=== PATIENT | female | born 1970 | race Caucasian/White ===

== ENCOUNTER 2024-04-03 14:04 | Outpatient (AMB) | payer MEDICAID, SELFPAY ==
--- NOTE | 2024-04-03 14:55 | ORTHONT_ITS ---
Vital signs 04/03/24 14:56 Height 1.6 m Height Method Stated Weight 122.045 kg Weight Measurement Method Standing Scale BMI 47.7 BP 135/85 H Blood Pressure Source Automatic Cuff Blood Pressure Location Right Upper Arm Position Sitting Respiration 18 Pulse 98 Pulse Source Monitor Temp 97.8 F Temp Source Temporal Artery Scan Pulse Oximetry (%) 98 Oxygen Delivery Method Room Air Med/Allergies Allergies & Medications Allergies No Known Allergies Allergy (Verified 04/03/24 14:56) Medication Reconciliation pseudoephedrine HCl 60 mg tablet 60 mg PO Q6H PRN 04/03/24 [History Confirmed 04/03/24] Subjective Visit Visit for: follow up visit Immunization / Flu Flu Vaccine in the Last 12 Months: No Flu Vaccine Exclusion Criteria: No Exclusion Criteria History of Present Illness Chief complaint: RIGHT KNEE Kalani is a pleasant 53-year-old female who presents today for bilateral knee pain worse on the right. She tried anti-inflammatories in the past. She is not any injections. She reports the pain is starting affect her quality life. She has been trying to lose weight and has a BMI of 48. Personal History Occupation: [employer] Hobbies: WALKS/BICYCLE Red flag PMH: none Pain Pain level (0-10): 3 Pain duration: COMES AND GOES Pain location: inside (medial), outside (lateral), anterior and posterior Pain quality: sharp, dull, aching and shocking Pain timing: increases with activity Associated signs & symptoms: weakness Ambulatory data Ambulatory device: cane Treatments Improvement with previous injections: No Improvement with PT: No Improvement with NSAIDS: n/a Review of Systems Review of Systems: All systems negative unless otherwise noted in HPI. Exam Exam Patient is in no acute distress and is cooperative with the examination today. Breathing is nonlabored. In no respiratory distress. Bilateral extremities were evaluated and demonstrates sensation intact to light touch. Palpable pedal pulses are present. No significant edema is present. Bilateral hips were examined. The patient has no pain with log roll of the hips. Internal rotation to 30 degrees and external rotation to 30 degrees is painless. Negative FADIR. The left knee was examined. The left knee is in [varus] alignment. Range of motion from [0-115] degrees. Knee is stable to varus and valgus as well as AP translation with <5mm. Patient has a [negative] McMurrays. There is [no] pain with patellofemoral compression and [no] crepitus noted. The knee is [tender] to palpation [medially]. The right knee was also examined. The right knee is in [varus] alignment. Range of motion from [0-120] degrees. Knee is stable to varus and valgus as well as AP translation with <5mm. Patient has a [negative] McMurrays. There is [no] pain with patellofemoral compression and [no] crepitus noted. The knee is [tender] to palpation [medially]. I have an x-ray report this is of severe arthritis bilaterally. I do nothing and visualized today Assessment and Plan Problem List (1) Arthritis of both knees: Status: Acute Plan: Patient is a pleasant 53-year-old female with bilateral knee pain and bilateral knee arthritis. She is morbidly obese we have discussed weight loss in great detail. We will get standing x-rays and likely do a cortisone injection at the next visit. We discussed nonoperative treatment. Office Procedures GNS Level of Care Nursing/Assessment Patient Status: Established Patient Nursing Assessment/Reassesment: Medication Reconciliation, Update PMH in EMR and Vital Signs Coordination of Care: Complex Care and Chronic Disease 1-5, Education Complex Pt/Fam, Consent,records obtained, informed consent, Results/Orders obtained and Staff clarify orders Established Patient Charge Established Patient Point Assignment: 95 Established Patient Point Charge: EP Level 3 (80-115) Past Medical History Past Medical History Have you ever been diagnosed with any of the following: Cardiology Problems Heart Murmur: Yes Congestive Heart Failure: No Edema: Yes Respiratory Problems Chronic Obstructive Pulmonary Disease (COPD): No Asthma: No Genital/Urinary Problems Renal Disease: No Endocrine Problems Diabetes Mellitus Type 1: No Diabetes Mellitus Type 2: Yes Blood Problems Sickle Cell Disease: No Psychologic Problems Anxiety: Yes
[2024-04-03 14:56] VITALS: BP 135/85; PULSE 98; RESP 18; TEMP 36.6; O2SAT 98; BMI 47.7
== END 2024-04-03 15:14 | disposition home or self-care (01) ==
LOC: HODSRG 14:04
PROVIDERS: Supervising Provider Orthopaedic Surgery Adult Reconstructive Orthopaedic Surgery; Visit Provider Orthopaedic Surgery Adult Reconstructive Orthopaedic Surgery
DX: M17.0 Bilateral primary osteoarthritis of knee (principal); M25.562 Pain in left knee; M25.561 Pain in right knee; E66.01 Morbid (severe) obesity due to excess calories; Z68.42 Body mass index [BMI] 45.0-49.9, adult; E11.9 Type 2 diabetes mellitus without complications
CPT/HCPCS: 99213; G0463

== ENCOUNTER 2024-04-30 08:06 | Outpatient (AMB) | payer MEDICAID, SELFPAY ==
[2024-04-30 08:12] VITALS: BP 123/80; PULSE 85; RESP 18; TEMP 36.4; O2SAT 97; BMI 47.7
--- NOTE | 2024-04-30 08:12 | ORTHONT_ITS ---
Vital signs 04/30/24 08:12 Height 1.6 m Height Method Stated Weight 122.13 kg Weight Measurement Method Standing Scale BMI 47.7 BP 123/80 Blood Pressure Source Automatic Cuff Blood Pressure Location Right Upper Arm Position Sitting Respiration 18 Pulse 85 Pulse Source Monitor Temp 97.6 F Temp Source Temporal Artery Scan Pulse Oximetry (%) 97 Oxygen Delivery Method Room Air Med/Allergies Allergies & Medications Allergies No Known Allergies Allergy (Verified 04/30/24 08:14) Medication Reconciliation pseudoephedrine HCl 60 mg tablet 60 mg PO Q6H PRN 04/03/24 [History Confirmed 04/30/24] Subjective Visit Visit for: follow up visit, knee (BILATERAL) and x-rays (RESULTS) Immunization / Flu Flu Vaccine in the Last 12 Months: Yes Flu Vaccine Exclusion Criteria: Already Received History of Present Illness Chief complaint: F/U XRAYS Kalani is a pleasant 53-year-old female who presents today for bilateral knee pain worse on the right. She tried anti-inflammatories in the past. She is not any injections. She reports the pain is starting affect her quality life. She has been trying to lose weight and has a BMI of 47. Personal History Occupation: [employer] Hobbies: WALKS/BICYCLE Red flag PMH: none Pain Pain level (0-10): 7 Pain duration: CONSTANT Pain location: inside (medial) Pain quality: aching Pain timing: night, increases with activity and stairs Associated signs & symptoms: stiffness Ambulatory data Ambulatory device: none Treatments Improvement with previous injections: No Improvement with PT: No Improvement with NSAIDS: no Review of Systems Review of Systems: All systems negative unless otherwise noted in HPI. Exam Exam Patient is in no acute distress and is cooperative with the examination today. Breathing is nonlabored. In no respiratory distress. Bilateral extremities were evaluated and demonstrates sensation intact to light touch. Palpable pedal pulses are present. No significant edema is present. Bilateral hips were examined. The patient has no pain with log roll of the hips. Internal rotation to 30 degrees and external rotation to 30 degrees is painless. Negative FADIR. The left knee was examined. The left knee is in [varus] alignment. Range of motion from [0-115] degrees. Knee is stable to varus and valgus as well as AP translation with <5mm. Patient has a [negative] McMurrays. There is [no] pain with patellofemoral compression and [no] crepitus noted. The knee is [tender] to palpation [medially]. The right knee was also examined. The right knee is in [varus] alignment. Range of motion from [0-120] degrees. Knee is stable to varus and valgus as well as AP translation with <5mm. Patient has a [negative] McMurrays. There is [no] pain with patellofemoral compression and [no] crepitus noted. The knee is [tender] to palpation [medially]. I have an x-ray report this is of severe arthritis bilaterally. She has significant arthrtis bilaterally Assessment and Plan Problem List (1) Arthritis of both knees: Status: Acute Plan: Patient is a pleasant 53-year-old female with bilateral knee pain and bilateral knee arthritis. She is morbidly obese we have discussed weight loss in great detail. We discussed weight loss and we will do bilateral knee injections today Recommend knee cortisone injections as patient would like to proceed with conservative treatment at this time. The risks and benefits of the procedure were reviewed with the patient and patient gave verbal consent to continue with the procedure. Procedure: performed by Dr. Goel Using sterile technique the Bilateral knees were thoroughly prepped with alcohol, and approximately 1 cc of Kenalog 40 mg/mL and 4 cc of 1% lidocaine was injected into each knee without resistance into the medial tibial femoral joint space. The patient tolerated the procedure. Office Procedures GNS Level of Care Nursing/Assessment Patient Status: Established Patient Nursing Assessment/Reassesment: Medication Reconciliation, Update PMH in EMR and Vital Signs Coordination of Care: Complex Care and Chronic Disease 1-5, Education Complex Pt/Fam, Consent,records obtained, informed consent, 1 Ins Authorization, Results/Orders obtained and Staff clarify orders Established Patient Charge Established Patient Point Assignment: 110 Established Patient Point Charge: EP Level 3 (80-115) Surgical Proc/IM SQ injection Major Surgical Procedure: Yes (BILATERAL KNEE INJECTION) Medication Given Medication Given Medication Given: Yes Documented Dose Given: 8 Route: Infiitration Medication Given Medication Given Medication Given: Yes Documented Dose Given: 2 Route: Infiitration Office Meds Xylocaine 10 mg/mL (1 %) injection solution Performing Provider: Sonny Goel MD Performing Location: [facility] Administered by: Sonny Goel MD on 04/30/24 08:43 Dose Route Admin Location Dispensed Lot Number Expiration Date [facility] Name Plate Stamper 40 mL Infiltration 40 mL [id number] 01/06/27 61394-704-33 [employer] triamcinolone acetonide 40 mg/mL suspension for injection Performing Provider: Sonny Goel MD Performing Location: [facility] Administered by: Sonny Goel MD on 04/30/24 08:43 Dose Route Admin Location Dispensed Lot Number Expiration Date [facility] Name Plate Stamper 80 mg Infiltration 2 mL [id number] 01/06/26 [address]-2 [employer] Past Medical History Past Medical History Have you ever been diagnosed with any of the following: Cardiology Problems Heart Murmur: Yes Congestive Heart Failure: No Edema: Yes Respiratory Problems Chronic Obstructive Pulmonary Disease (COPD): No Asthma: No Smoking: No Smoking Exposure: No Genital/Urinary Problems Renal Disease: No Endocrine Problems Diabetes Mellitus Type 1: No Diabetes Mellitus Type 2: Yes Blood Problems Sickle Cell Disease: No Psychologic Problems Anxiety: Yes
== END 2024-04-30 08:51 | disposition home or self-care (01) ==
LOC: HODSRG 08:06
PROVIDERS: PCP Nurse Practitioner Family; Referring Provider Nurse Practitioner Family; Supervising Provider Orthopaedic Surgery Adult Reconstructive Orthopaedic Surgery; Visit Provider Orthopaedic Surgery Adult Reconstructive Orthopaedic Surgery
DX: M17.0 Bilateral primary osteoarthritis of knee (principal); M25.562 Pain in left knee; M25.561 Pain in right knee; E66.01 Morbid (severe) obesity due to excess calories; Z68.42 Body mass index [BMI] 45.0-49.9, adult; E11.9 Type 2 diabetes mellitus without complications
CPT/HCPCS: 20610; 99213; J3301; J3490; G0463